=== PATIENT | male | born 1985 | race Caucasian/White ===

== ENCOUNTER 2016-10-14 00:06 | Emergency (ER) | payer OTHER, BC ==
[2016-10-14] MEDS ORDERED: Amoxicill/Clav 875/125mg Tab 1 TAB TAB PO ONE ×2 (00:15→00:22)
[2016-10-14] MEDS ORDERED: DIPH,PERTUSS,TET(ADACEL) VAC/PF 0.5 ML (Tdap) IM ONE ×2 (00:15→00:22)
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
[2016-10-14] MEDS ORDERED: HYDROcodone-APAP 5 MG -325 MG TABLET PO SCH (00:45)
[2016-10-14] MEDS ORDERED: HYDROcodone-APAP 5 MG -325 MG TABLET PO ONE (00:49)
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
== END 2016-10-14 00:58 | disposition home or self-care (01) ==
LOC: ER 00:06
DX: S60.476A Other superficial bite of right little finger, initial encounter (principal); Y04.1XXA Assault by human bite, initial encounter; Y99.0 Civilian activity done for income or pay
CPT/HCPCS: 73130; 90471; 99282